=== PATIENT | male | born 1955 | race Caucasian/White ===

== ENCOUNTER 2016-12-21 19:39 | Emergency (ER) | payer OTHER ==
[2016-12-21 22:39] LABS: HEMOGLOBIN 13.6 gm/dl (14.0-17.5); RED BLOOD COUNT 3.82 M/UL (4.20-5.50); WHITE BLOOD COUNT 6.4 K/UL (4.5-11.0)
[2016-12-21 22:57] LABS: BUN/CREATININE RATIO 15 (0-10)
== END 2016-12-22 01:50 | disposition home or self-care (01) ==
LOC: ER1 19:39
PROVIDERS: Family Medicine
DX: R55 Syncope and collapse (principal); S09.90XA Unspecified injury of head, initial encounter; S01.112A Laceration without foreign body of left eyelid and periocular area, initial encounter; F10.10 Alcohol abuse, uncomplicated; Y90.0 Blood alcohol level of less than 20 mg/100 ml; F17.200 Nicotine dependence, unspecified, uncomplicated; W18.39XA Other fall on same level, initial encounter; Y93.01 Activity, walking, marching and hiking; Y92.481 Parking lot as the place of occurrence of the external cause; Y99.0 Civilian activity done for income or pay
CPT/HCPCS: 36415; 70450; 70486; 71010; 72125; 80053; 80307; 82550; 82553; 83874; 84443; 84484; 85025; 93005; 96374; 99285; G0480; J0690; J7050

== ENCOUNTER → 2021-09-09 | Outpatient (CLI) | payer MEDICARE ==
[~2021-09-09] MED LIST: CARAFATE1 GM PO; ELIQUIS 5 MG TAB5 MG PO; FAMOTIDINE20 MG PO; FERROUS SU300 MG/5 M PO; FOLIC ACID 1 MG1 MG PO; IPRAT-ALBUT 0.5-3 ML NEB; LIBRIUM CAP 2525 MG PO; LOPRESSOR 25 MG25 MG GT; MAGNESIUM OXID400 M1 PO; MEGACE 400400 MG/10 PO; NICOTINE PATCH1 EAC2 TD; POTASSIUM CHLO10 ME1 PO; PROTONIX 40 MG40 MG PO; SYNTHROID75 MCG PO; TYLENOL ELIXIR NG; VITAMIN B-1100 M1 PO
== END ==
LOC: KOH-I 12:42
DX: F17.210 Nicotine dependence, cigarettes, uncomplicated (principal)
CPT/HCPCS: 71271